=== PATIENT | female | born 1980 | race Caucasian/White ===

== ENCOUNTER → 2017-09-16 08:21 | Outpatient (CLI) | payer OTHER, SELFPAY ==
[2017-09-16 10:42] LABS: Hematocrit 32.5 % (36-46); Hemoglobin 11.6 g/dL (12.0-16.0)
[2017-09-16 11:09] LABS: GTT (PREG) 1 Hour PP 50gm Dose 108 mg/dL (76-139)
== END ==
DX: Z34.82 Encounter for supervision of other normal pregnancy, second trimester (principal); Z3A.25 25 weeks gestation of pregnancy
CPT/HCPCS: 36415; 82950; 85014; 85018; 86850

== ENCOUNTER → 2017-11-12 12:06 | Outpatient (CLI) | payer OTHER, SELFPAY ==
[2017-11-13 15:27] LABS: Strep Grp B PCR NEG for Grp B Strep
== END ==
DX: Z36.9 Encounter for antenatal screening, unspecified (principal); Z3A.35 35 weeks gestation of pregnancy
CPT/HCPCS: 87653

== ENCOUNTER 2017-12-12 17:56 | Inpatient (IN) | payer OTHER, SELFPAY ==
[2017-12-12] MEDS: miSOPROStol 25 MCG TABLET VAG (19:30)
[2017-12-12 19:53] LABS: Add Manual Diff / Slide Review NO; Basophils Percent Auto 0.5 % (0-2); Eosinophils Percent Auto 3.2 % (2-4); Hematocrit 30.7 % (36-46); Hemoglobin 10.8 g/dL (12.0-16.0); Lymphocytes Percent Auto 22.1 % (25-40); Mean Corpuscular Hemoglobin 29.4 PG (26-34); Mean Corpuscular Volume 83.8 fL (80-100); Monocytes Percent Auto 7.5 % (3-14); Neutrophils Absolute Auto 6200 /uL (3000-5900); Neutrophils Percent Auto 66.7 % (50-75); Platelet Count 175 X10^3/uL (150-400); Red Blood Cell Count 3.67 X10^6/uL (4.0-5.2); Red Cell Distribution Width 13.3 % (11.6-14.8); White Blood Cell Count 9.3 X10^3/uL (4.5-11.0)
--- NOTE | 2017-12-13 08:03 | PM.OBHP.1 ---
OB HPI Date/Time Date of admission: 12/12/17 Date Patient Seen: 12/13/17 Time Patient Seen: 08:04 History of Present Illness Chief complaint: EVAL OF LABOR : 3 Para: 2 Estimated Date of Delivery: 12/13/17 Estimated Gestational Age (weeks): 40 Narrative: Marina Goddard is a 37 year old female three para two was admitted at term for induction of labor. The patient's antepartum course is documented in her antepartum record and was uneventful. Her laboratory studies were normal. The patient's original cervical exam showed her to be a Negrete six. Patient was admitted for misoprostol cervical ripening. After cervical ripening the patient's cervix was 2-3 cm dilated/60% effaced/vertex/minus two station/cervix soft/cervix anterior. This is a patient 9. The plan therefore is to proceed with Pitocin induction of labor Evaluation Evaluation Laboratory results: Laboratory Tests 12/12/17 12/12/17 19:45 19:45 WBC 9.3 RBC 3.67 L Hgb 10.8 L Hct 30.7 L MCV 83.8 MCH 29.4 MCHC 35.0 RDW 13.3 Plt Count 175 Neut % (Auto) 66.7 Lymph % (Auto) 22.1 L [place] % (Auto) 7.5 Eos % (Auto) 3.2 Baso % (Auto) 0.5 Neut # (Auto) 6200 H Blood Type O Negative Antibody Screen Positive Antibody Identification Anti-D PFSH Surgical History History of breast augmentation (Resolved) Family History Other Alcoholism Social History Smoking Status: Never smoker Meds Home Medications Medication Instructions Recorded Confirmed Type No Known Home Medications 12/12/17 12/12/17 History Allergies Allergy/AdvReac Type Severity Reaction Status Date / Time No Known Drug Allergies Allergy Verified 12/12/17 20:06 Exam [facility] Head: normal to inspection Ears: hearing grossly normal bilaterally Nose: external nose normal and nares normal Mouth: oral mucosae normal Teeth and gingiva: dentition normal Throat: posterior oropharynx normal Eyes General: appearance normal, both eyes and all related structures Neck Neck: supple Chest Chest: normal inspection of the chest Resp Auscultation: clear to auscultation bilaterally Cardio Palpation: normal PMI Rate: regular rate Rhythm: regular rhythm Heart Sounds: S1 normal, S2 normal and no murmurs GI Inspection: normal to inspection Palpation: soft, no hepatosplenomegaly, No hernia and No splenomegaly Auscultation: normal bowel sounds Manual OB Exam: dilated 3, effaced 75% and station -2 Uterus Location (Fundal Height): 39 Presentation: vertex Estimated Weight (lbs): 7 Back/Spine/Pelvis Cervical Spine: normal cervical lordosis Thoracic/Lumbar Spine: thoracic and lumbar spine normal to inspection Skin General: no rashes or lesions noted Neuro Motor: muscle tone normal throughout Sensory Exam: no sensory deficits noted Extrem General: normal to inspection Psych Appearance: grossly normal Objective Labs Result Diagrams: 12/12/17 19:45 Labs: Laboratory Results - last 24 hr 12/12/17 12/12/17 19:45 19:45 WBC 9.3 RBC 3.67 L Hgb 10.8 L Hct 30.7 L MCV 83.8 MCH 29.4 MCHC 35.0 RDW 13.3 Plt Count 175 Neut % (Auto) 66.7 Lymph % (Auto) 22.1 L [place] % (Auto) 7.5 Eos % (Auto) 3.2 Baso % (Auto) 0.5 Neut # (Auto) 6200 H Blood Type O Negative Antibody Screen Positive Antibody Identification Anti-D Assessment and Plan Plan: Plan: Term intrauterine Favorable cervix post misoprostol cervical ripening Pitocin induction of labor
[2017-12-13] MEDS: LACTATED RINGERS 1,000 ML 100 ML IV (08:14)
[2017-12-13] MEDS: OXYTOCIN PREMIX 30 UNIT/500 ML PLAST..BAG IV (08:15)
--- NOTE | 2017-12-13 18:42 | PM.OBPRVD ---
Delivery date: 12/13/17 Intrapartal events: Prolonged 2nd Stage > 2.5 hours and Bleeding Induction method: per pitocin protocol Delivery augmentation: rupture of membranes Delivery monitor: external FHT and external uterine Route of delivery: forceps Indication for instrumentation: other Episiotomy description: Midline Laceration description: Perineal - 3rd Degree Delivery repair: chromic Estimated blood loss (mL): 500 Anesthesia type: Spinal Narrative: The patient was at term and induced with misoprostol cervical ripening and Pitocin. The patient make progress States cm had occiput posterior presentation, right occiput posterior presentation. Patient had complete had an extended pushing episodes and eventually loud forceps were applied baby rotated to the midline and delivered over a median episiotomy with third-degree extension a live-born male infant with scores of eight and nine. There were no vaginal tears or cervical tears. There is some bleeding immediately post delivery which subsided with uterine massage. The placenta delivered spontaneously The cord had three vessels. Cord blood was obtained. The sphincter was repaired with two 0 chromic suture. PCR was repaired in a routine fashion using a running two 0 chromic suture and interrupted two 0 chromic suture on the superficial diaphragm. At the end of procedure there was minimal bleeding. The patient tolerated the procedure well Plan for aftercare: Routine aftercare
[2017-12-13] MEDS: METHYLERGONOVINE 0.2 MG TABLET PO (18:57)
[2017-12-13 19:26] LABS: Hematocrit 26.7 % (36-46); Hemoglobin 9.1 g/dL (12.0-16.0)
[2017-12-13] MEDS: IBUPROFEN 600 MG TABLET PO (23:00)
[2017-12-13] MEDS: DERMOPLAST SPRAY 20% 60 ML 1 SPRAY TOP (23:17)
[2017-12-13] MEDS: LANOLIN OINT 7 GM 1 APPLIC TOP (23:18)
[2017-12-14 07:08] LABS: Add Manual Diff / Slide Review NO; Basophils Percent Auto 0.2 % (0-2); Eosinophils Percent Auto 0.2 % (2-4); Hematocrit 22.5 % (36-46); Hemoglobin 7.8 g/dL (12.0-16.0); Lymphocytes Percent Auto 10.7 % (25-40); Mean Corpuscular HGB Conc 34.8 % (30-36); Mean Corpuscular Hemoglobin 29.1 PG (26-34); Mean Corpuscular Volume 83.8 fL (80-100); Monocytes Percent Auto 6.5 % (3-14); Neutrophils Absolute Auto 13800 /uL (3000-5900); Neutrophils Percent Auto 82.4 % (50-75); Platelet Count 161 X10^3/uL (150-400); Red Blood Cell Count 2.68 X10^6/uL (4.0-5.2); Red Cell Distribution Width 13.4 % (11.6-14.8); White Blood Cell Count 16.8 X10^3/uL (4.5-11.0)
--- NOTE | 2017-12-14 09:40 | PM.OBDS.1 ---
Discharge Providers Date of admission: 12/12/17 17:56 Primary care physician: Ac Gary MD Consults: 12/14/17 00:12 Consult to [place] Attendant Routine Comment: Consult to [place] Attendant Routine Comment: Discharge provider: Ac Gary MD Summary Date Patient Seen: 12/14/17 Time Patient Seen: 09:41 Hospital Course: Patient is a 37-year-old white female three para two who was admitted for induction of labor. The patient received misoprostol cervical ripening followed by Pitocin induction of labor. Membranes were ruptured early. The patient made good progress to approximately 8 cm and then made slow progress because of a right occiput posterior presentation. Patient was able to push the baby in 2nd stage to approximately plus two station with the baby in ROP presentation. Loud forceps were applied and the baby rotated to the midline and delivered over a median episiotomy with third-degree extension a live-born male with scores of eight and nine. The patient sustained a third-degree extend perineal extension. Which was repaired in a routine fashion. Post delivery the patient did well. She remained afebrile with stable vital signs and was progressively elevated ambulated. Her immediate hematocrit post delivery was 26% which felt 22.5% in the morning. Patient was totally asymptomatic and ambulating well. She was voiding and good volumes and having no difficulty. Peripartum Data Infant Delivery Method: Assisted Delivery Laceration description: Perineal - 3rd Degree Episiotomy description: Midline Procedures: Forceps delivery of occiput posterior presentation with failure to progress complications: none Status at Discharge Functional status at discharge: independent ambulation Overall status at discharge: patient is back to baseline Time Spent with Patient Total time spent providing and/or coordinating discharge services: 20 min Less than 30 minutes Objective Labs Result Diagrams: 12/14/17 06:53 Labs: Laboratory Results - last 24 hr 12/12/17 12/13/17 12/14/17 19:45 19:22 06:53 WBC 16.8 H D RBC 2.68 L Hgb 9.1 L 7.8 L Hct 26.7 L 22.5 L MCV 83.8 MCH 29.1 MCHC 34.8 RDW 13.4 Plt Count 161 Neut % (Auto) 82.4 H Lymph % (Auto) 10.7 L [place] % (Auto) 6.5 Eos % (Auto) 0.2 L Baso % (Auto) 0.2 Neut # (Auto) 91112 H Antibody Titer Negative Discharge Plan Discharge Plan Patient Disposition: Home Discharge comment: doing well low Hctiron supplementation Discharge Med Rec/Prescriptions Prescriptions: New benzocaine-menthol [Dermoplast (with menthol)] 20-0.5 % Aerosol 1 spray Topical Q1HR PRN (Reason: perineal pain) Qty: 1 RF: 0 oxycodone-acetaminophen 5-325 mg Tablet 2 tab PO Q4HR Qty: 30 RF: 0 ibuprofen 600 mg Tablet 600 mg PO Q6HR PRN (Reason: Pain, Mild (1-3)) Qty: 30 RF: 0 lanolin [[id number]] Cream 1 applic Topical PRN PRN (Reason: Tenderness) Qty: 1 RF: 0 ferrous gluconate 324 mg (38 mg iron) Tablet 324 mg PO DAILY Qty: 90 RF: 0 [id number] [Prenatabs Rx] 29 mg iron- 1 mg Tablet 1 tab PO DAILY Qty: 60 RF: 0 Provider Discharge Instructions Diet: Diet as Tolerated Activity: up ad antione Skin/Wound/Dressing Care Report to your healthcare provider any signs of infection, such as:: chills, fever, night sweats, increased pain and unusual drainage Discharge Data Primary Care Provider: Ac Gary Attending Provider: Ac Gary Admit Date/Time: 12/12/17 17:56
--- NOTE | 2017-12-14 09:44 | P.DS_ITS ---
Discharge Providers Date of admission: 12/12/17 17:56 Primary care physician: Ac Gary MD Consults: 12/14/17 00:12 Consult to Binding Stitcher Routine Comment: Consult to [place] Laborer Routine Comment: Discharge provider: Ac Gary MD Summary Date Patient Seen: 12/14/17 Time Patient Seen: 09:41 Hospital Course: Patient is a 37-year-old white female three para two who was admitted for induction of labor. The patient received misoprostol cervical ripening followed by Pitocin induction of labor. Membranes were ruptured early. The patient made good progress to approximately 8 cm and then made slow progress because of a right occiput posterior presentation. Patient was able to push the baby in 2nd stage to approximately plus two station with the baby in ROP presentation. Loud forceps were applied and the baby rotated to the midline and delivered over a median episiotomy with third-degree extension a live-born male with scores of eight and nine. The patient sustained a third-degree extend perineal extension. Which was repaired in a routine fashion. Post delivery the patient did well. She remained afebrile with stable vital signs and was progressively elevated ambulated. Her immediate hematocrit post delivery was 26% which felt 22.5% in the morning. Patient was totally asymptomatic and ambulating well. She was voiding and good volumes and having no difficulty. Peripartum Data Infant Delivery Method: Assisted Delivery Laceration description: Perineal - 3rd Degree Episiotomy description: Midline Procedures: Forceps delivery of occiput posterior presentation with failure to progress complications: none Status at Discharge Functional status at discharge: independent ambulation Overall status at discharge: patient is back to baseline Time Spent with Patient Total time spent providing and/or coordinating discharge services: 20 min Less than 30 minutes Objective Labs Result Diagrams: 12/14/17 06:53 Labs: Laboratory Results - last 24 hr 12/12/17 12/13/17 12/14/17 19:45 19:22 06:53 WBC 16.8 H D RBC 2.68 L Hgb 9.1 L 7.8 L Hct 26.7 L 22.5 L MCV 83.8 MCH 29.1 MCHC 34.8 RDW 13.4 Plt Count 161 Neut % (Auto) 82.4 H Lymph % (Auto) 10.7 L [place] % (Auto) 6.5 Eos % (Auto) 0.2 L Baso % (Auto) 0.2 Neut # (Auto) 95084 H Antibody Titer Negative Discharge Plan Discharge Plan Patient Disposition: Home Discharge comment: doing well low Hctiron supplementation Discharge Med Rec/Prescriptions Prescriptions: New benzocaine-menthol [Dermoplast (with menthol)] 20-0.5 % Aerosol 1 spray Topical Q1HR PRN (Reason: perineal pain) Qty: 1 RF: 0 oxycodone-acetaminophen 5-325 mg Tablet 2 tab PO Q4HR Qty: 30 RF: 0 ibuprofen 600 mg Tablet 600 mg PO Q6HR PRN (Reason: Pain, Mild (1-3)) Qty: 30 RF: 0 lanolin [[id number]] Cream 1 applic Topical PRN PRN (Reason: Tenderness) Qty: 1 RF: 0 ferrous gluconate 324 mg (38 mg iron) Tablet 324 mg PO DAILY Qty: 90 RF: 0 [id number] [Prenatabs Rx] 29 mg iron- 1 mg Tablet 1 tab PO DAILY Qty: 60 RF: 0 Provider Discharge Instructions Diet: Diet as Tolerated Activity: up ad antione Skin/Wound/Dressing Care Report to your healthcare provider any signs of infection, such as:: chills, fever, night sweats, increased pain and unusual drainage Discharge Data Primary Care Provider: Ac Gary Attending Provider: Ac Gary Admit Date/Time: 12/12/17 17:56
[2017-12-14 10:21] VITALS: BP 110/74; PULSE 113; RESP 16; TEMP 36.4
[2017-12-14 11:59] VITALS: BP 110/74; PULSE 113; RESP 16; TEMP 36.4
[2017-12-14] MEDS: IBUPROFEN SUSP 100 MG/5 ML UDC 600 MG PO (12:43)
[2017-12-14 13:18] VITALS: BP 110/74; PULSE 113; RESP 16; TEMP 36.4
== END 2017-12-14 13:15 | disposition home or self-care (01) | DRG 775 ==
DX: O64.0XX0 Obstructed labor due to incomplete rotation of fetal head, not applicable or unspecified (principal); O70.20 Third degree perineal laceration during delivery, unspecified; Z3A.40 40 weeks gestation of pregnancy; Z37.0 Single live birth; O62.1 Secondary uterine inertia
CPT/HCPCS: 01967; 36415; 59050; 59400; 85014; 85018; 85025; 86850; 86870; 86900; 86901; G0379; J2590; J3010

== ENCOUNTER → 2022-12-24 13:23 | Outpatient (CLI) | payer OTHER, SELFPAY ==
--- NOTE | 2022-12-24 13:25 | DI.RAD.S_ITS ---
PROCEDURE: XR FOOT LT MIN 3V INDICATIONS: left foot bruise TECHNIQUE: 3 views of the foot were acquired. COMPARISON: None. FINDINGS: Bones: No fractures or dislocations. No suspicious bony lesions. Soft tissues: No tibiotalar joint effusion. Achilles tendon appears normal. IMPRESSION: No acute left foot fracture or dislocation. Dictated by: Alex Mcdonald M.D. on 12/24/2022 at 16:41 Approved by: Alex Mcdonald M.D. on 12/24/2022 at 16:42
== END ==
PROVIDERS: Referring Provider Physician Assistant; Visit Provider Physician Assistant
DX: S90.32XA Contusion of left foot, initial encounter (principal); X58.XXXA Exposure to other specified factors, initial encounter
CPT/HCPCS: 73630